=== PATIENT | female | born 1995 | race Asian ===

== ENCOUNTER → 2016-09-01 | Outpatient (CLI) | payer OTHER ==
[~2016-09-01] MED LIST: CEPH500C PO; METO-157 PO; ONDA4TAB10 SL
== END | disposition home or self-care (01) ==
LOC: C.LABSPEC 17:19
PROVIDERS: ATTEND Nurse Practitioner Family
DX: N39.0 Urinary tract infection, site not specified (principal)

== ENCOUNTER 2017-01-20 19:18 | Emergency (ER) | payer BC, OTHER ==
[~2017-01-20] VITALS: Ht 154.9 cm; Wt 52.6 kg
[2017-01-20 19:30] VITALS: TEMP 36.9; Ht 154.9 cm; Wt 52.6 kg
[2017-01-20] MEDS ORDERED: SODIUM CHLORIDE 0.9% 1000ML 1,000 ML IV STA (19:47)
[2017-01-20] MEDS ORDERED: ONDANSETRON INJ 2 MG/ML 2 ML VIAL IV STA (19:47)
[2017-01-20 20:04] LABS: BASO % 0.5 %; BASO ABS # 0.04 K/uL (0-0.2); COMPLETE YES; EOS % 0.5 %; IG% 0.3 %; LYMPH % 22.3 %; LYMPH ABS # 1.63 K/uL (1.2-3.4); MEAN CELL VOLUME 85.8 fL (80-100); MEAN CORPUSCULAR HEMOGLOBIN 29.5 pg (25-34); MEAN CORPUSCULAR HGB CONC 34.3 g/dl (32-36); MEAN PLATELET VOLUME 9.7 fL (7.4-10.4); MONO % 8.1 %; NEUT % 68.3 %; PLATELET COUNT 310 K/uL (130-400); RED BLOOD COUNT 5.36 M/uL (4.2-5.4); WHITE BLOOD COUNT 7.31 K/uL (4.8-10.8)
--- NOTE | 2017-01-20 20:06 | EMERGENCY ROOM VISIT NOTE ---
History Report prepared by Aline: Gaurav Dejesus Under the Supervision of: Dr. Nick Schaeffer M.D. First contact with patient: 19:36 Chief Complaint: VOMITING Stated Complaint: NAUSEA, VOMITING History of Present Illness The patient is a 21 year old female with a past medical history of a recent hospital stay for vomiting who presents to the ED with a cc of vomiting continuing since 5 days ago. Positive nausea. Negative chills, fever, rhinorrhea , congestion, cough, chest pain, shortness of breath, abdominal pain, weakness, numbness, or urinary symptoms. At this time, the patient had begun to experience episodes of vomiting. It persisted, so she went to the hospital in [place]. They could not find the source of her vomiting. She was discharged yesterday with some nausea medications. Today, around noon, she began to vomit again. She says she vomited 20-30 times today. This is similar to what happened to her five days ago. She has not eaten since Wednesday or had a bowel movement. She denies any medical problems, recent travel, allergies, or medications. She denies any surgeries as well. Her last menstrual period was 1 week ago and normal. Source of History: patient Onset: 8 hours ago Position: other (GI) Symptom Intensity: 20-30 episodes Quality: other (Vomiting) Timing: intermittent Associated Symptoms: + nausea, No fevers, No chills, No cough, No chest pain , No SOB, No abdominal pain, No urinary symptoms, No weakness, No numbness Review of Systems See HPI for pertinent positives and negatives. A total of ten systems were reviewed and were otherwise negative. Past Medical & Surgical Medical Problems: (1) No Known Active Medical Problems Family History Patient reports no known family medical history. Social History Smoking Status: Never Smoker Smokeless Tobacco Use: No Alcohol Use: none Drug Use: none Marital Status: Current/Historical Medications Scheduled Cephalexin Monohydrate (Keflex), 500 MG PO BID Ondasetron Odt (Zofran Odt), 4 MG SL Q6H Scheduled PRN Metoclopramide (Reglan), 10 MG PO Q6H PRN for Nausea Allergies Coded Allergies: No Known Allergies (Unverified , 01/20/17) Physical Exam Vital Signs Date Time Temp Pulse Resp B/P (MAP) Pulse Ox O2 Delivery O2 Flow Rate FiO2 01/20/17 23:33 70 20 132/76 98 01/20/17 22:35 103 20 132/83 99 Room Air 01/20/17 21:21 66 20 145/92 99 Room Air 01/20/17 20:30 55 01/20/17 20:22 56 22 149/94 99 Room Air 01/20/17 19:30 36.9 82 16 137/91 98 Room Air Physical Exam GENERAL: Awake, alert, uncomfortable appearing, NAD HENT: Normocephalic, atraumatic. EYES: Normal conjunctiva. Sclera non-icteric. NECK: Supple. No nuchal rigidity. FROM. Posterior oropharynx clear. RESPIRATORY: CTAB, no rhonchi, wheezing, crackles CARDIAC: RRR, no MRG ABDOMEN: Soft, NTND, BS+, no flank tenderness. MSK: No chest wall TTP, no LE edema NEURO: GCS 15, CN 2-12 intact, moves all 4s on command SKIN: No rash or jaundice noted. Medical Decision & Procedures Laboratory Results 01/20/17 19:50 Red Blood Count 5.36, Mean Corpuscular Volume 85.8, Mean Corpuscular Hemoglobin 29.5, Mean Corpuscular Hemoglobin Concent 34.3, Mean Platelet Volume 9.7, Neutrophils (%) (Auto) 68.3, Lymphocytes (%) (Auto) 22.3, Monocytes (%) (Auto) 8.1, Eosinophils (%) (Auto) 0.5, Basophils (%) (Auto) 0.5, Neutrophils # (Auto) 4.99, Lymphocytes # (Auto) 1.63, Monocytes # (Auto) 0.59, Eosinophils # (Auto) 0.04, Basophils # (Auto) 0.04 01/20/17 19:50 Test 01/20/17 19:50 01/20/17 20:25 White Blood Count 7.31 K/uL (4.8-10.8) Red Blood Count 5.36 M/uL (4.2-5.4) Hemoglobin 15.8 g/dL (12.0-16.0) Hematocrit 46.0 % (37-47) Mean Corpuscular Volume 85.8 fL (80-100) Mean Corpuscular Hemoglobin 29.5 pg (25-34) Mean Corpuscular Hemoglobin Concent 34.3 g/dl (32-36) Platelet Count 310 K/uL (130-400) Mean Platelet Volume 9.7 fL (7.4-10.4) Neutrophils (%) (Auto) 68.3 % Lymphocytes (%) (Auto) 22.3 % Monocytes (%) (Auto) 8.1 % Eosinophils (%) (Auto) 0.5 % Basophils (%) (Auto) 0.5 % Neutrophils # (Auto) 4.99 K/uL (1.4-6.5) Lymphocytes # (Auto) 1.63 K/uL (1.2-3.4) Monocytes # (Auto) 0.59 K/uL (0.11-0.59) Eosinophils # (Auto) 0.04 K/uL (0-0.5) Basophils # (Auto) 0.04 K/uL (0-0.2) RDW Standard Deviation 37.7 fL (36.4-46.3) RDW Coefficient of Variation 12.2 % (11.5-14.5) Immature Granulocyte % (Auto) 0.3 % Immature Granulocyte # (Auto) 0.02 K/uL (0.00-0.02) Anion Gap 6.0 mmol/L (3-11) Est Creatinine Clear Calc Drug Dose 60.5 ml/min Estimated GFR () 82.5 Estimated GFR (Non- 71.2 BUN/Creatinine Ratio 11.1 (10-20) Calcium Level 8.9 mg/dl (8.5-10.1) Total Bilirubin 0.5 mg/dl (0.2-1) Direct Bilirubin 0.2 mg/dl (0-0.2) Aspartate Amino Transf (AST/SGOT) 15 U/L (15-37) Alanine Aminotransferase (ALT/SGPT) 23 U/L (12-78) Alkaline Phosphatase 70 U/L (45-117) Total Protein 7.5 gm/dl (6.4-8.2) Albumin 4.1 gm/dl (3.4-5.0) Lipase 187 U/L (73-393) Urine Color DK YELLOW Urine Appearance CLOUDY (CLEAR) Urine pH 8.5 (4.5-7.5) Urine Specific [place] 1.028 (1.000-1.030) Urine Protein NEG (NEG) Urine Glucose (UA) NEG (NEG) Urine Ketones TRACE (NEG) Urine Occult Blood TRACE (NEG) Urine Nitrite NEG (NEG) Urine Bilirubin NEG (NEG) Urine Urobilinogen NEG (NEG) Urine Leukocyte Esterase MODERATE (NEG) Urine WBC (Auto) >30 /hpf (0-5) Urine RBC (Auto) 0-4 /hpf (0-4) Urine Hyaline Casts (Auto) 0 /lpf (0-5) Urine Epithelial Cells (Auto) >30 /lpf (0-5) Urine Bacteria (Auto) 3+ (NEG) Urine Pathogenic Casts /lpf (0) Urine Test NEG (NEG) Medications Administered Medications (Trade) Dose Ordered Sig/Tad Route Start Time Stop Time Status Last Admin Dose Admin Sodium Chloride 1,000 ml @ 999 mls/hr Q1H1M STAT IV 01/20/17 19:47 01/20/17 20:47 DC 01/20/17 20:16 999 MLS/HR Ondansetron HCl (Zofran Inj) 4 mg NOW STAT IV 01/20/17 19:47 01/20/17 19:49 DC 01/20/17 20:16 4 MG Ceftriaxone Sodium (Rocephin Inj) 1 gm NOW STAT IV 01/20/17 21:03 01/20/17 21:04 DC 01/20/17 21:26 1 GM Metoclopramide HCl (Reglan Inj) 10 mg NOW STAT IV 01/20/17 21:22 01/20/17 21:23 DC 01/20/17 21:26 10 MG ED Course 1936: The patient was evaluated in room B10. A complete history and physical exam was performed. 2200: The patient is resting comfortably. 2325: I reevaluated the patient. Discussed results and discharge instructions: She verbalized understanding and agreement. The patient is ready for discharge. Medical Decision The patient is a 21 year old female with a past medical history of a recent hospital stay for vomiting who presents to the ED with a cc of vomiting continuing since 5 days ago. Positive nausea. Negative chills, fever, rhinorrhea , congestion, cough, chest pain, shortness of breath, abdominal pain, weakness, numbness, or urinary symptoms. Triage Nursing notes reviewed. The patient's presentation and history were concerning for appendicitis, diverticulitis, PUD, biliary pathology, UTI, pancreatitis, obstruction, mesenteric ischemia, aortic pathology, infections, inflammatory bowel disease, renal colic, as well as others were entertained. Patient was seen and evaluated at bedside. Patient denied any abdominal pain or did have some nausea and vomiting that she stated had been persistent since Wednesday. Patient had let laboratory that was obtained in addition to UA and urine test. Patient's lab work was fairly unremarkable and urine test were negative. Patient's UA did have some signs of infection. Upon further discussion with the patient she states that she has had several UTIs in the past year. Given the patient's symptoms in addition to a possible urinary tract infection the patient was treated for UTI. Patient's pain improved her nausea subsided and patient was given antibiotics. Patient was told to slowly augment her diet starting with clears broth soups and advance as tolerated. Patient ambulated without difficulty and tolerated by mouth. Patient was given strict follow-up, discharge, and return precautions. Patient discharged home. Medication Reconcilliation Current Medication List: was personally reviewed by me Blood Pressure Screening Patient's blood pressure: Normal blood pressure Blood pressure disposition: Did not require urgent referral Impression Primary Impression: Nausea & vomiting Additional Impression: UTI (urinary tract infection) Scribe Attestation The scribe's documentation has been prepared under my direction and personally reviewed by me in its entirety. I confirm that the note above accurately reflects all work, treatment, procedures, and medical decision making performed by me. Departure Information Dispostion Home / Self-Care Prescriptions Ondasetron Odt (ZOFRAN ODT) 4 Mg Tab 4 MG SL Q6H for Nausea, #6 TAB Prov: Nick Schaeffer M.D. 01/20/17 Metoclopramide (Reglan) 10 Mg Tab 10 MG PO Q6H Y for Nausea, #6 TAB Prov: Nick Schaeffer M.D. 01/20/17 Cephalexin Monohydrate (Keflex) 500 Mg Cap 500 MG PO BID for 7 Days, #14 CAP Prov: Nick Schaeffer M.D. 01/20/17 Referrals No Doctor, Assigned (PCP) [facility] Forms HOME CARE DOCUMENTATION FORM, IMPORTANT VISIT INFORMATION Patient Instructions ED Nausea Vomiting, ED UTI Cystitis Female, My [facility] Additional Instructions Please return to the emergency department if you have worsening or recurrent symptoms not amenable to at-home treatment. Please call for a follow-up appointment with her primary care physician. Please take your medications as prescribed. If you have other concerns and/or complaints please feel free to also call your primary care physician's office or return the ED for further evaluation, management, and treatment. Please please take one of your antinausea medications. If one does not work he may try using the other. Please do not take both at the same time. Please finish the full course of antibiotics. Please consider eating yogurt while you are taking antibiotics. If not he may consider taking a probiotic. Problem Qualifiers Primary Impression: Nausea & vomiting Vomiting type: unspecified Vomiting Intractability: non-intractable Qualified Codes: R11.2 - Nausea with vomiting, unspecified Additional Impression: UTI (urinary tract infection) Urinary tract infection type: acute cystitis Hematuria presence: without hematuria Qualified Codes: N30.00 - Acute cystitis without hematuria
[2017-01-20 20:27] LABS: BUN/CREATININE RATIO 11.1 (10-20); CALCIUM 8.9 mg/dl (8.5-10.1); CREATININE 1.1 mg/dl (0.60-1.20); POTASSIUM 3.4 mmol/L (3.5-5.1)
[2017-01-20 20:36] LABS: URINE APPEARANCE CLOUDY (CLEAR); URINE BILIRUBIN NEG (NEG); URINE COLOR DK YELLOW; URINE EPITHELIAL CELL AUTO >30 /lpf (0-5); URINE NITRITE NEG (NEG); URINE PH 8.5 (4.5-7.5); URINE SPECIFIC GRAVITY 1.028 (1.000-1.030); UROBILINOGEN NEG (NEG); ZZUR CULT IF INDIC CLEAN CATCH YES
[2017-01-20 20:38] LABS: MANUAL MICROSCOPIC REQUIRED? NO; REVIEW REQ? YES
[2017-01-20 20:49] LABS: SULFASALICYLIC ACID NEG (NEG)
[2017-01-20] MEDS ORDERED: CEFTRIAXONE SOD INJ 1 GM ADDVIAL IV STA (21:03)
[2017-01-20] MEDS ORDERED: METOCLOPRAMIDE HCL INJ 5 MG/ML 2 ML VIAL IV STA (21:22)
[2017-01-20] MEDS ORDERED: ONDA4TAB10 SL (22:58)
[2017-01-20] MEDS ORDERED: CEPH500C PO (22:58)
[2017-01-20] MEDS ORDERED: METO-157 PO (22:58)
[2017-01-20 23:33] VITALS: BP 132/76; PULSE 70; O2SAT 98
== END 2017-01-20 23:35 | disposition home or self-care (01) ==
LOC: C.EDB 19:20
DX: R11.2 Nausea with vomiting, unspecified (principal); N39.0 Urinary tract infection, site not specified